=== PATIENT | male | born 1970 | race Caucasian/White ===

== ENCOUNTER 2017-06-11 04:48 | Day surgery (SDC) | payer OTHER ==
[2017-06-10 14:26] VITALS: BMI 25.1
[~2017-06-11 04:48] MED LIST: BUPIVACAINE HCL/PF 0.25% (2.5MG/ML) 10 ML VIAL IJ ONE; LIDOCAINE HCL 1% PRESERVATIVE FREE - 30ML VIAL IJ ONE; methylPREDNISolone ACET (DEPO) 80 MG/1 ML VIAL IJ ONE
[2017-06-11 07:28] VITALS: TEMP 97.5
[2017-06-11] MEDS ORDERED: methylPREDNISolone ACET (DEPO) 80 MG/1 ML VIAL ONE (07:53)
[2017-06-11] MEDS ORDERED: BUPIVACAINE HCL/PF 0.25% (2.5MG/ML) 10 ML VIAL ONE (07:53)
[2017-06-11] MEDS ORDERED: PROPOFOL 20 ML ONE (08:34)
[2017-06-11] MEDS ORDERED: LIDOCAINE HCL 1% PRESERVATIVE FREE - 30ML VIAL IJ ONE (08:43)
[2017-06-11] MEDS ORDERED: methylPREDNISolone ACET (DEPO) 80 MG/1 ML VIAL IJ ONE (08:43)
[2017-06-11] MEDS ORDERED: BUPIVACAINE HCL/PF 0.25% (2.5MG/ML) 10 ML VIAL IJ ONE ×2 (08:43)
--- NOTE | 2017-06-11 09:15 | OP ---
DATE OF OPERATION: 06/11/2017 PREOPERATIVE DIAGNOSES: 1. History of C5-C7 fusion. 2. Right C4-C5 radiculopathy. POSTOPERATIVE DIAGNOSES: 1. History of C5-C7 fusion. 2. Right C4-C5 radiculopathy. ATTENDING SURGEON: Himanshu Bee MD PROCEDURE: 1. Right C4-C5 epidural steroid injection. 2. Intraoperative fluoroscopy. ANESTHESIA: Local with IV sedation. ANESTHESIOLOGIST: Ioana Lainez MD INDICATIONS: The patient is a 46-year-old male with prior history of C5-C6, C6-C7 fusion. He has complained of a recurrent right shoulder pain and is here for his first epidural steroid injection of the year on the right at C4-C5. The risks of the procedure include, but are not limited to, bleeding, infection, spinal headache, and neurological injury. The patient understands the indications for the procedure, the procedure in detail, risks and benefits, and alternatives for treatments for his condition, and he wishes to proceed. No guarantees were given for a favorable outcome. PROCEDURE IN DETAIL: After the patient was taken to the operating room, he was placed in the prone position with a pillow under his hips and his chin. Arms were tucked on the sides. Posterior cervical region was cleaned with alcohol and prepped with Betadine. A skin wheal was raised with 5 mL of 1% Xylocaine. A 20-gauge spinal needle was inserted under AP and lateral fluoroscopy towards the right C4-C5 facet. The needle was then marched medially towards the lateral recess with loss of resistance technique. There was no CSF or blood backflow. Depo-Medrol 80 mg and 1 mL of 0.25% Marcaine were injected. The needle was withdrawn and sterile bandage was applied. The patient tolerated the procedure well and was turned back to the supine position, moving bilateral upper and lower extremities well. He did not complain of a headache or any neurological symptoms. The OR time-out procedure was followed. HIMANSHU BEE M.D. [id number]
[2017-06-11 09:56] VITALS: BP 112/70; PULSE 67
== END 2017-06-11 15:26 | disposition home or self-care (01) ==
LOC: JASU-SURG 04:48
PROVIDERS: ATTEND Neurological Surgery
PROC: 3E0R3BZ Introduction of Anesthetic Agent into Spinal Canal, Percutaneous Approach (ICD-10-PCS; 2017-06-11)
PROC: B01BZZZ Fluoroscopy of Spinal Cord (ICD-10-PCS; 2017-06-11)
PROC: 3E0R33Z Introduction of Anti-inflammatory into Spinal Canal, Percutaneous Approach (ICD-10-PCS; principal; 2017-06-11 08:30)
DX: M54.12 Radiculopathy, cervical region (principal); Z98.1 Arthrodesis status
CPT/HCPCS: 76000-TC

== ENCOUNTER 2017-11-05 07:30 | Day surgery (SDC) | payer OTHER ==
[2017-10-31 12:19] VITALS: BMI 24.1
[2017-11-05 07:48] VITALS: TEMP 97.7
[2017-11-05] MEDS ORDERED: BUPIVACAINE HCL/PF 0.25% (2.5MG/ML) 10 ML VIAL ONE (08:39)
[2017-11-05] MEDS ORDERED: methylPREDNISolone ACET (DEPO) 80 MG/1 ML VIAL ONE (08:40)
[2017-11-05] MEDS ORDERED: MIDAZOLAM HCL 2 MG/2 ML SINGLE DOSE VIAL ONE ×2 (08:59)
[2017-11-05] MEDS ORDERED: PROPOFOL 20 ML ONE (09:03)
--- NOTE | 2017-11-05 10:01 | OP ---
DATE OF OPERATION: 11/05/2017 PREOPERATIVE DIAGNOSES: 1. Right C4-5 radiculopathy. 2. History of anterior cervical fusion, C5-C7. POSTOPERATIVE DIAGNOSES: 1. Right C4-5 radiculopathy. 2. History of anterior cervical fusion, C5-C7. ATTENDING SURGEON: Himanshu Kong MD ANESTHESIA: Local with IV sedation. ANESTHESIOLOGIST: Dr. Weber. PROCEDURE: 1. Right C4-5 epidural steroid injection. 2. Intraoperative fluoroscopy. INDICATION: The patient is a 47-year-old with intractable neck pain, right upper extremity radiculopathy. Because of intractable symptoms and failure of conservative treatment he is here for a 2nd epidural steroid injection in a year. The risks of the procedure include but are not limited to bleeding, infection, spinal headache and neurologic injury. The patient understood the indication for procedure, risks and benefits and alternatives for the treatment of his cervical spine condition and wished to proceed. No guarantees were given for a favorable outcome. PROCEDURE IN DETAIL: The patient was taken to the operating room. He was placed in the prone position with a pillow under his chin. Arms were tucked at the side. After IV sedation was given the posterior cervical region was cleaned with alcohol and prepped with Betadine. A skin wheal was raised with 5 mL of 1% Xylocaine. A 22-gauge spinal needle was inserted under AP fluoroscopic guidance first at the right C4-5 facet joint using the prior anterior cervical plating system at C5-6 as a landmark. The needle was then marched medially towards the lateral recess under the lamina of C4. The loss of resistance technique was utilized. There was no CSF or blood backflow. Depo-Medrol 80 mg and 1 mL of 0.25% Marcaine was injected. Patient tolerated procedure well and was turned back to the supine position, moving bilateral upper and lower extremities well. He did not complain of headache. Obie [id number] MTDD
[2017-11-05 12:01] VITALS: BP 107/64; PULSE 60
== END 2017-11-05 10:45 | disposition home or self-care (01) ==
LOC: JASU-SURG 07:30
PROVIDERS: ATTEND Neurological Surgery
PROC: 3E0R3BZ Introduction of Anesthetic Agent into Spinal Canal, Percutaneous Approach (ICD-10-PCS; 2017-11-05)
PROC: B01BZZZ Fluoroscopy of Spinal Cord (ICD-10-PCS; 2017-11-05)
PROC: 3E0R33Z Introduction of Anti-inflammatory into Spinal Canal, Percutaneous Approach (ICD-10-PCS; principal; 2017-11-05 08:30)
DX: M54.12 Radiculopathy, cervical region (principal); Z98.1 Arthrodesis status
CPT/HCPCS: 76000-TC-FY

== ENCOUNTER 2018-06-22 05:34 | Day surgery (SDC) | payer OTHER ==
[2018-06-19 18:55] VITALS: BMI 25.5
[2018-06-22] MEDS ORDERED: BUPIVACAINE HCL/PF 0.25% (2.5MG/ML) 10 ML VIAL ONE (07:18)
[2018-06-22] MEDS ORDERED: methylPREDNISolone ACET (DEPO) 80 MG/1 ML VIAL ONE (07:18)
[2018-06-22] MEDS ORDERED: PROPOFOL 20 ML ONE ×2 (07:36→08:37)
[2018-06-22] MEDS ORDERED: MIDAZOLAM HCL 2 MG/2 ML SINGLE DOSE VIAL ONE ×2 (07:36)
[2018-06-22] MEDS ORDERED: SUCCINYLCHOLINE CHLORIDE 200 MG/10 ML VIAL ONE (07:36)
[2018-06-22] MEDS ORDERED: LIDOCAINE HCL 1%, 10 MG/ML (50 mL VIAL) IJ ONE (08:07)
[2018-06-22] MEDS ORDERED: BUPIVACAINE HCL/PF 0.25% (2.5MG/ML) 10 ML VIAL IJ ONE (08:10)
[2018-06-22] MEDS ORDERED: methylPREDNISolone ACET (DEPO) 80 MG/1 ML VIAL IJ ONE (08:10)
[2018-06-22 08:40] VITALS: BP 100/54; PULSE 75; TEMP 97.4
--- NOTE | 2018-06-22 11:31 | OP ---
DATE OF OPERATION: 06/21/2018 PREOPERATIVE DIAGNOSES: 1. C4-5 disk bulge with cervical radiculopathy. 2. History of C5-C7 fusion with chronic radiculopathy. POSTOPERATIVE DIAGNOSES: 1. C4-5 disk bulge with cervical radiculopathy. 2. History of C5-C7 fusion with chronic radiculopathy. ATTENDING SURGEON: Himanshu Kong MD PROCEDURE: 1. Right C4-5 epidural steroid injection. 2. Intraoperative fluoroscopy. ANESTHESIA: Local with IV sedation. ANESTHESIOLOGIST: Ioana Cali MD INDICATION: Patient is a 47-year-old male who had previously undergone C5-C7 fusion several years earlier. He developed right-sided new scapular and neck pain with radicular symptoms. He is here for third of the series of 3 epidural steroid injections. The last injection was several months ago. Previous injection did give him some relief. The risks of procedure include but were limited to, bleeding, infection, spinal headache, neurological injury, paralysis, and other risks of anesthesia. The patient understands the indication for the procedure, procedure in detail, risks and benefits, and alternatives for treatment of his cervical spine condition and wishes to proceed. No guarantees were given for a favorable outcome. PROCEDURE IN DETAIL: After the patient was taken to the operating room, he was placed in prone position with a pillow under her chin. Neck was placed in the usual position and slightly flexed. Posterior cervical region was cleaned with alcohol and prepped with Betadine. Skin wheal was raised with 5 mL of 1% xylocaine. A 22-gauge spinal needle was inserted under AP and lateral fluoroscopic guidance from a right-sided approach to the C4-5 facet joint. The needle was then marked medially to the lateral aspect of the spinal canal. Loss of resistance technique was utilized. There was no CSF or blood backflow. Depo-Medrol 80 mg and 1 mL of 0.25% Marcaine was injected, and the needle was withdrawn, and sterile bandage was applied. The patient tolerated procedure well and was turned back to the supine position, moving bilateral upper and lower extremities as he did prior to the procedure. He did not complain of headache. Sterile bandage was applied. Obie [id number]
== END 2018-06-22 10:30 | disposition home or self-care (01) ==
LOC: JASU-SURG 05:34
PROVIDERS: ATTEND Neurological Surgery
PROC: 3E0R33Z Introduction of Anti-inflammatory into Spinal Canal, Percutaneous Approach (ICD-10-PCS; 2018-06-22)
PROC: B01BZZZ Fluoroscopy of Spinal Cord (ICD-10-PCS; 2018-06-22)
PROC: 3E0R3BZ Introduction of Anesthetic Agent into Spinal Canal, Percutaneous Approach (ICD-10-PCS; principal; 2018-06-22 08:00)
DX: M50.13 Cervical disc disorder with radiculopathy, cervicothoracic region (principal)
CPT/HCPCS: 76000-TC-FY

== ENCOUNTER 2018-12-28 06:45 | Day surgery (SDC) | payer OTHER ==
[2018-12-25 10:55] VITALS: BMI 25.5
[2018-12-28] MEDS ORDERED: PROPOFOL 20 ML ONE ×3 (08:02→08:03)
[2018-12-28] MEDS ORDERED: LIDOCAINE HCL/PF 2% SDV 5ML VIAL ONE (08:02)
[2018-12-28] MEDS ORDERED: DEXAMETHASONE SOD PHOSPHATE 4 MG/1 ML VIAL ONE (08:02)
[2018-12-28] MEDS ORDERED: BUPIVACAINE HCL/PF 0.25% (2.5MG/ML) 10 ML VIAL IJ ONE (08:22)
[2018-12-28] MEDS ORDERED: LIDOCAINE HCL 1%, 10 MG/ML (20ML VIAL) ID ONE (08:24)
[2018-12-28] MEDS ORDERED: methylPREDNISolone ACET (DEPO) 80 MG/1 ML VIAL IJ ONE (08:24)
[2018-12-28 09:37] VITALS: BP 106/76; PULSE 69; TEMP 97.9
--- NOTE | 2018-12-28 13:04 | OP ---
DATE OF OPERATION: 12/28/2018 PREOPERATIVE DIAGNOSES: 1. History of C5 to C7 fusion. 2. Right C4-5 radiculopathy. POSTOPERATIVE DIAGNOSES: 1. History of C5 to C7 fusion. 2. Right C4-5 radiculopathy. ATTENDING SURGEON: Himanshu Bee MD PROCEDURE: 1. Right C4-5 epidural steroid injection. 2. Intraoperative fluoroscopy. ANESTHESIA: Local with IV sedation. ANESTHESIOLOGIST: Beverley Marques MD INDICATIONS: The patient is a 48-year-old male who had previously undergone C5 to C7 anterior cervical fusion several years earlier. He complains of recurrent neck pain and right upper extremity radiculopathy. Because of his intractable symptoms and failure of conservative treatment, he is here for the 2nd cervical epidural steroid injection. The 1st one did give him excellent relief for several months. The risks of procedure include but are not limited to bleeding, infection, spinal headache, and neurological injury. The patient understands the indications for the procedure, the procedure in detail, risks and benefits, and alternative treatments for his condition, and wished to proceed. No guarantees were given for a favorable outcome. PROCEDURE IN DETAIL: After the patient was taken to the operating room, he was placed in a prone position with a pillow under his chest. His head was placed in a foam pillow. Posterior cervical region was cleaned with alcohol and prepped with Betadine. Arms were tucked on the sides. Then 5 mL of 1% Xylocaine was used for local anesthetic over right C4-5 region as the localizing fluoroscopic imaging was obtained. A 22-gauge spinal needle was inserted under AP and lateral fluoroscopic guidance from a right-sided approach to C4-5 facet joint. The needle was then marched medially towards the lateral recess. Yjib-xm-bxrethlwbt technique was utilized. There was no CSF or blood backflow. Depo-Medrol 80 mg and 1 mL of 0.25% Marcaine were injected. The needle was withdrawn, sterile bandage was applied. The patient tolerated the procedure well, was turned back to supine position, moved bilateral extremities well. He did not complain of headache. The procedure was under AP and lateral fluoroscopic guidance. HIMANSHU BEE M.D. GLORIA/[id number]
== END 2018-12-28 10:10 | disposition home or self-care (01) ==
LOC: JASU-SURG 06:45
PROVIDERS: ATTEND Neurological Surgery
PROC: 3E0R33Z Introduction of Anti-inflammatory into Spinal Canal, Percutaneous Approach (ICD-10-PCS; 2018-12-28)
PROC: B01BZZZ Fluoroscopy of Spinal Cord (ICD-10-PCS; 2018-12-28)
PROC: 3E0R3BZ Introduction of Anesthetic Agent into Spinal Canal, Percutaneous Approach (ICD-10-PCS; principal; 2018-12-28 08:00)
DX: M43.22 Fusion of spine, cervical region (principal); M54.12 Radiculopathy, cervical region
CPT/HCPCS: 76000-TC-FY

== ENCOUNTER 2019-06-14 05:01 | Day surgery (SDC) | payer OTHER ==
[2019-06-10 11:26] VITALS: BMI 25.5
[~2019-06-14 05:01] MED LIST changes: -BUPIVACAINE HCL/PF 0.25% (2.5MG/ML) 10 ML VIAL IJ ONE; +BUPIVACAINE HCL/PF 0.5% (5 MG/ML) 30 ML VIAL IJ ONE; +LIDOCAINE HCL 0.5%, 5 MG/ML (50mL SDVIAL) INF ONE; -LIDOCAINE HCL 1% PRESERVATIVE FREE - 30ML VIAL IJ ONE; -methylPREDNISolone ACET (DEPO) 80 MG/1 ML VIAL IJ ONE; +methylPREDNISolone ACET (DEPO) 80 MG/1 ML VIAL IM ONE
[2019-06-14] MEDS ORDERED: MIDAZOLAM HCL 2 MG/2 ML SINGLE DOSE VIAL ONE (08:58)
[2019-06-14] MEDS ORDERED: PROPOFOL 20 ML ONE (08:58)
[2019-06-14] MEDS ORDERED: LIDOCAINE HCL 0.5%, 5 MG/ML (50mL SDVIAL) INF ONE (09:39)
[2019-06-14] MEDS ORDERED: BUPIVACAINE HCL/PF 0.5% (5 MG/ML) 30 ML VIAL IJ ONE (09:41)
[2019-06-14] MEDS ORDERED: methylPREDNISolone ACET (DEPO) 80 MG/1 ML VIAL IM ONE (09:41)
[2019-06-14 10:14] VITALS: TEMP 97.4
[2019-06-14 10:38] VITALS: BP 108/68; PULSE 67
--- NOTE | 2019-06-15 10:27 | OP ---
DATE OF OPERATION: 06/14/2019 PREOPERATIVE DIAGNOSES: 1. Right C4-5 radiculopathy. 2. History of anterior cervical fusion C5 and C7. POSTOPERATIVE DIAGNOSES: 1. Right C4-5 radiculopathy. 2. History of anterior cervical fusion C5 and C7. ATTENDING SURGEON: Himanshu Bee MD PROCEDURES: 1. Right C4-5 epidural steroid injection. 2. Intraoperative fluoroscopy. ANESTHESIA: Local with IV sedation. ANESTHESIOLOGIST: Perlita Avila CRNA INDICATIONS: Patient is a 48-year-old male with history of C5 and C7 fusion with repair. He has chronic cervical radiculopathy with recent exacerbation. MRI demonstrated C4-5 disk bulge. He is now consented for posterior epidural steroid injection on his C4-5 level. Risks of procedure include, but are not limited to , bleeding, infection, spinal headache, and neurologic injury. The patient understands the indication for the procedure, procedure in detail, risks, benefits, and alternatives and wishes to proceed. No guarantee is given for a favorable outcome. PROCEDURE IN DETAIL: After the patient was taken to the operating room, placed in prone position with a pillow under his chin. Next, was placed in slightly flexed position. Arms were tucked on the side. Posterior cervical region was cleaned with alcohol and painted with Betadine. Skin wheal was raised using 1% Xylocaine. A 22-gauge spinal needle inserted under AP and lateral fluoroscopic guidance from a right-sided approach to C4-5 facet joint. Needle was then marked medially toward the lateral recess. C5-6 anterior cervical plating system was used as the landmark. Loss of resistance technique was utilized. There was no CSF or blood backflow, 80 mg Depo-Medrol, 1 mL of 0.25% Marcaine was injected. The needle was withdrawn. Sterile bandage was applied. The patient tolerated the procedure well and was turned back to supine position. Bilateral lower extremities moving well. He did not complain of a headache. HIMANSHU BEE M.D. [id number] MTDD
== END 2019-06-14 11:56 | disposition home or self-care (01) ==
LOC: JASU-SURG 05:01
PROVIDERS: ATTEND Neurological Surgery
PROC: 3E0R33Z Introduction of Anti-inflammatory into Spinal Canal, Percutaneous Approach (ICD-10-PCS; 2019-06-14)
PROC: B01BZZZ Fluoroscopy of Spinal Cord (ICD-10-PCS; 2019-06-14)
PROC: 3E0R3BZ Introduction of Anesthetic Agent into Spinal Canal, Percutaneous Approach (ICD-10-PCS; principal; 2019-06-14 09:00)
DX: M50.90 Cervical disc disorder, unspecified, unspecified cervical region (principal); M54.12 Radiculopathy, cervical region
CPT/HCPCS: 76000-TC-FY

== ENCOUNTER 2020-01-05 06:44 | Day surgery (SDC) | payer OTHER ==
[2020-01-04 08:44] VITALS: BMI 25.1
[2020-01-05] MEDS ORDERED: LIDOCAINE HCL 1%, 10 MG/ML (20ML VIAL) ONE (07:09)
[2020-01-05] MEDS ORDERED: DEXAMETHASONE SOD PHOSPHATE 4 MG/1 ML VIAL ONE (07:09)
[2020-01-05] MEDS ORDERED: BUPIVACAINE HCL/PF 0.25% (2.5MG/ML) 10 ML VIAL ONE (07:09)
[2020-01-05] MEDS ORDERED: BUPIVACAINE HCL 0.25% 125 MG/50 ML VIAL INF ONE (07:17)
[2020-01-05] MEDS ORDERED: methylPREDNISolone ACET (DEPO) 80 MG/1 ML VIAL IM ONE (07:18)
[2020-01-05] MEDS ORDERED: LIDOCAINE HCL 1%, 10 MG/ML (20ML VIAL) INF ONE (07:20)
[2020-01-05] MEDS ORDERED: LIDOCAINE HCL/PF 2% SDV 5ML VIAL ONE (07:55)
[2020-01-05] MEDS ORDERED: PROPOFOL 20 ML ONE ×2 (07:55)
[2020-01-05 08:27] VITALS: TEMP 97.3
[2020-01-05 09:23] VITALS: BP 110/68; PULSE 62
--- NOTE | 2020-01-06 14:41 | OP ---
DATE OF OPERATION: 01/05/2020 PREOPERATIVE DIAGNOSES: 1. History of prior C5 to C7 fusion. 2. C4-C5 disk disease with neck pain and cervical radiculopathy. POSTOPERATIVE DIAGNOSES: 1. History of prior C5 to C7 fusion. 2. C4-C5 disk disease with neck pain and cervical radiculopathy. ATTENDING SURGEON: Himanshu Bee MD PROCEDURE: Right C4-C5 epidural steroid injection.. ANESTHESIA: Local with IV sedation. ANESTHESIOLOGIST: Amilcar Noland MD INDICATION: Patient is a 49-year-old male who had previously undergone anterior cervical fusion from C5 to C7. Prior to that history, he had a long history of neck pain and cervical radiculopathy and had deferred surgery. After surgery, he had intermittent back pain and had extensive recent exacerbation. An MRI examination had demonstrated C4-5 disk disease with mild recess stenosis. Because of these persisting intractable symptoms, he is here for a 2nd epidural steroid injection of the year. Risks of procedure include but are not limited to bleeding, infection, dural tear with CSF leak, neurological injury, increased thromboembolic risk, and other risk of general anesthesia. The patient understands indication for procedure, procedure in detail, risks and benefits, and alternative treatment for cervical spine condition and wishes to proceed with procedure. No guarantee was given for a favorable outcome. PROCEDURE IN DETAIL: The patient was taken to the operating room. He was placed in supine position. He was then turned in a prone position with a pillow under his chin. Neck was placed in slightly flexed position. Posterior cervical region cleaned with alcohol and prepared with Betadine. A skin wheal was raised with 5 mL of 1% Xylocaine. AP and lateral fluoroscopic image was obtained to localize the injection site. A 22-gauge spinal needle was inserted under AP and lateral fluoroscopic guidance from right sided approach to C4-C5 facet joint. This was verified by fluoroscopic imaging. The needle was then marched medially to allow recess. Loss of resistance technique was utilized. There was no CSF or blood backflow. Depo-Medrol 80 mg, 1 mL of 0.25% Marcaine were injected. The needle was withdrawn, sterile bandage was applied. The patient tolerated the procedure well, was turned back to the supine position, moving bilateral upper and lower extremities well. OR timeout procedure was followed. The patient did not complain of headache after the injection. His neurological status remained stable. HIMANSHU BEE M.D. GLORIA/[id number]
== END 2020-01-05 09:41 | disposition home or self-care (01) ==
LOC: JASU-SURG 06:44
PROVIDERS: ATTEND Neurological Surgery
PROC: 3E0R33Z Introduction of Anti-inflammatory into Spinal Canal, Percutaneous Approach (ICD-10-PCS; 2020-01-05)
PROC: 3E0R3BZ Introduction of Anesthetic Agent into Spinal Canal, Percutaneous Approach (ICD-10-PCS; principal; 2020-01-05 07:30)
DX: M50.90 Cervical disc disorder, unspecified, unspecified cervical region (principal); M54.12 Radiculopathy, cervical region
CPT/HCPCS: 76000-TC-FY

== ENCOUNTER 2020-12-13 05:13 | Day surgery (SDC) | payer OTHER ==
[2020-12-12 11:37] VITALS: BMI 25.1
[2020-12-13] MEDS ORDERED: MIDAZOLAM HCL 2 MG/2 ML SINGLE DOSE VIAL ONE ×2 (08:17→08:35)
[2020-12-13] MEDS ORDERED: PROPOFOL 20 ML ONE (08:29)
[2020-12-13] MEDS ORDERED: methylPREDNISolone ACET (DEPO) 80 MG/1 ML VIAL IM ONE (08:32)
[2020-12-13] MEDS ORDERED: BUPIVACAINE HCL/PF 0.25% (2.5MG/ML) 10 ML VIAL IJ ONE (08:32)
[2020-12-13] MEDS ORDERED: LIDOCAINE 1% P/F 10 MG/ML VIAL INF ONE (08:32)
[2020-12-13 09:04] VITALS: TEMP 97.8
[2020-12-13 14:34] VITALS: BP 114/66; PULSE 66
== END 2020-12-13 10:00 | disposition home or self-care (01) ==
LOC: JASU-SURG 05:13
PROVIDERS: ATTEND Neurological Surgery
PROC: 3E0R33Z Introduction of Anti-inflammatory into Spinal Canal, Percutaneous Approach (ICD-10-PCS; 2020-12-13)
PROC: 3E0R3BZ Introduction of Anesthetic Agent into Spinal Canal, Percutaneous Approach (ICD-10-PCS; principal; 2020-12-13 08:00)
DX: M54.12 Radiculopathy, cervical region (principal)
CPT/HCPCS: 76000-TC-FY

== ENCOUNTER 2021-09-05 04:10 | Day surgery (SDC) | payer OTHER ==
[2021-09-03 11:03] VITALS: BMI 25.1
[2021-09-05] MEDS ORDERED: LIDOCAINE HCL 1%, 10 MG/ML (20ML VIAL) ONE (07:21)
[2021-09-05] MEDS ORDERED: BUPIVACAINE HCL/PF 0.5% (5MG/ML) 10 ML VIAL ONE ×2 (07:21→07:24)
[2021-09-05] MEDS ORDERED: LIDOCAINE HCL/PF 1% SDV 5ML VIAL ONE (07:24)
[2021-09-05] MEDS ORDERED: methylPREDNISolone ACET (DEPO) 80 MG/1 ML VIAL ONE (07:29)
[2021-09-05] MEDS ORDERED: BUPIVACAINE HCL/PF 0.25% (2.5MG/ML) 10 ML VIAL ONE (07:29)
[2021-09-05] MEDS ORDERED: SUCCINYLCHOLINE CHLORIDE 200 MG/10 ML SYRINGE ONE (07:40)
[2021-09-05] MEDS ORDERED: PROPOFOL 20 ML ONE (07:40)
[2021-09-05] MEDS ORDERED: MIDAZOLAM HCL 2 MG/2 ML SINGLE DOSE VIAL ONE (07:40)
[2021-09-05] MEDS ORDERED: methylPREDNISolone ACET (DEPO) 80 MG/1 ML VIAL IM ONE (07:50)
[2021-09-05] MEDS ORDERED: BUPIVACAINE HCL/PF 0.5% (5 MG/ML) 30 ML VIAL IJ ONE (07:50)
[2021-09-05] MEDS ORDERED: LIDOCAINE HCL 1% PRESERVATIVE FREE - 30ML VIAL IJ ONE (07:50)
[2021-09-05 08:25] VITALS: TEMP 97
[2021-09-05 08:52] VITALS: BP 100/60; PULSE 76
== END 2021-09-05 08:40 | disposition home or self-care (01) ==
LOC: JASU-SURG 04:10
PROVIDERS: ATTEND Neurological Surgery
PROC: 3E0R3BZ Introduction of Anesthetic Agent into Spinal Canal, Percutaneous Approach (ICD-10-PCS; 2021-09-05)
PROC: B01BYZZ Fluoroscopy of Spinal Cord using Other Contrast (ICD-10-PCS; 2021-09-05)
PROC: 3E0R33Z Introduction of Anti-inflammatory into Spinal Canal, Percutaneous Approach (ICD-10-PCS; principal; 2021-09-05 07:30)
DX: M54.12 Radiculopathy, cervical region (principal); M50.20 Other cervical disc displacement, unspecified cervical region
CPT/HCPCS: 76000-TC-FY

== ENCOUNTER 2022-12-11 05:10 | Day surgery (SDC) | payer OTHER ==
[2022-12-05 15:23] VITALS: BMI 24.8
[2022-12-11] MEDS ORDERED: BUPIVACAINE HCL/PF 0.75% 10 ML VIAL ONE (07:19)
[2022-12-11] MEDS ORDERED: LIDOCAINE HCL/PF 1% SDV 5ML VIAL ONE (07:19)
[2022-12-11] MEDS ORDERED: methylPREDNISolone ACET (DEPO) 80 MG/1 ML VIAL ONE (07:19)
[2022-12-11] MEDS ORDERED: LIDOCAINE HCL/PF 2% SDV 5ML VIAL ONE (07:30)
[2022-12-11] MEDS ORDERED: PROPOFOL 20 ML ONE (07:30)
[2022-12-11] MEDS ORDERED: MIDAZOLAM HCL 2 MG/2 ML SINGLE DOSE VIAL ONE (07:30)
[2022-12-11] MEDS ORDERED: GLYCOPYRROLATE 0.2 MG/1 ML VIAL ONE (07:32)
[2022-12-11] MEDS ORDERED: BUPIVACAINE HCL/PF 0.75% 10 ML VIAL NR ONE (07:58)
[2022-12-11] MEDS ORDERED: methylPREDNISolone ACET (DEPO) 80 MG/1 ML VIAL IM ONE (07:58)
[2022-12-11 08:38] VITALS: RESP 18
[2022-12-11 09:29] VITALS: BP 120/79; PULSE 75; TEMP 98.5
== END 2022-12-11 09:35 | disposition home or self-care (01) ==
LOC: JASU-SURG 05:10
PROVIDERS: ATTEND Neurological Surgery
PROC: 3E0R3BZ Introduction of Anesthetic Agent into Spinal Canal, Percutaneous Approach (ICD-10-PCS; 2022-12-11)
PROC: 3E0R33Z Introduction of Anti-inflammatory into Spinal Canal, Percutaneous Approach (ICD-10-PCS; principal; 2022-12-11 07:30)
DX: M54.12 Radiculopathy, cervical region (principal)
CPT/HCPCS: 76000-TC-FY